=== PATIENT | male | born 1950 | race African-American/Black ===

== ENCOUNTER 2024-08-19 18:21 | Emergency (ER) | payer MEDICARE ==
[~2024-08-19] VITALS: Ht 185.4 cm; Wt 80.1 kg
[2024-08-19 18:32] VITALS: O2SAT 99
[2024-08-19 22:51] LABS: HEMATOCRIT. 31.8 % (42.0-52.0); HEMOGLOBIN. 9.6 g/dL (14.0-18.0); MEAN CORPUSCULAR HEMOGLOBIN 22.2 pg (28.0-32.0); MEAN CORPUSCULAR HGB CONC 30.3 g/dL (31.0-37.0); MEAN CORPUSCULAR VOLUME 73.1 fL (80.0-94.0); MEAN PLATELET VOLUME 7.4 fl (7.4-10.4); PLATELET 343 x1000/uL (130-400); RED BLOOD CELL COUNT 4.34 mill/uL (4.7-6.1); RED CELL DISTRIBUTION WIDTH 16.4 % (11.6-14.6); WHITE BLOOD COUNT 16.7 x1000/uL (4.5-11.0)
[2024-08-19 22:52] LABS: CHLORIDE 101 mEq/L (98-107); DIFFERENTIAL COMMENT 1; POTASSIUM 4.2 mEq/L (3.5-5.1); SODIUM 134 mEq/L (136-145)
[2024-08-19 22:53] LABS: CALCIUM 9.4 mg/dL (8.7-10.4); CARBON DIOXIDE 28 mEq/L (21-32)
[2024-08-19 22:58] LABS: CREATININE 0.9 mg/dL (0.6-1.3); GLUCOSE 101 mg/dL (70-105)
[2024-08-19 22:59] LABS: UREA NITROGEN BLOOD 31 mg/dL (9-23)
[2024-08-19 23:00] LABS: ALANINE AMINOTRANSFERASE < 7 IU/L (10-49); ALBUMIN 3.1 g/dL (3.2-4.8); ASPARTATE AMINOTRANSFERASE 8 IU/L (<34)
[2024-08-19 23:01] LABS: BILIRUBIN TOTAL 0.6 mg/dL (0.1-1.0); PROTEIN TOTAL 6.6 g/dL (6.0-8.3)
[2024-08-19 23:36] LABS: ANISOCYTOSIS 1+; HYPOCHROMASIA 1+; MICROCYTOSIS 2+; PLATELET ESTIMATE NORMAL
[2024-08-19] MEDS: HYDROCODONE/ACETAMINOPHEN 7.5/325MG TABLET PO ONE (23:58)
[2024-08-20 01:00] VITALS: BP 111/56; PULSE 79; RESP 16; TEMP 36.14
[2024-08-20] MEDS ORDERED: ACETAMINOPHEN 325MG TABLET PO PRN (02:45)
[2024-08-20] MEDS ORDERED: HYDROCODONE/ACETAMINOPHEN 5/325MG TABLET PO PRN (02:45)
[2024-08-20] MEDS ORDERED: DOCUSATE SODIUM 100MG CAPSULE PO PRN (02:45)
[2024-08-20] MEDS ORDERED: MAGNESIUM/ALUMINUM HYDROXIDE/SIMETHICONE 30ML UDC PO PRN (02:45)
[2024-08-20] MEDS ORDERED: POTASSIUM CHLORIDE 20MEQ TABLET SR PO PRN (02:45)
[2024-08-20] MEDS ORDERED: CLONIDINE 0.1MG TABLET PO PRN (02:45)
[2024-08-20] MEDS ORDERED: IPRATROPIUM/ALBUTEROL 0.5-3(2.5)MG/3ML NEB HHN PRN (02:45)
[2024-08-20] MEDS ORDERED: ONDANSETRON HCL 4MG/2ML INJ IV PRN (02:45)
[2024-08-20] MEDS ORDERED: NALOXONE HCL 0.4MG/ML VIAL IV PRN (03:00)
[2024-08-20 04:00] VITALS: BP 91/44; PULSE 70; RESP 16; TEMP 36.55848; O2SAT 97
[2024-08-20] MEDS: CEFTRIAXONE 1GM/50ML 50 ML IV SCH (05:07)
[2024-08-20 07:45] VITALS: BP_SYST 117
[2024-08-20] MEDS: ENOXAPARIN 40MG/0.4ML SYR SUBCUT SCH (09:37)
== END 2024-08-20 13:23 | disposition left against medical advice (07) ==
LOC: ER 18:21 → 5WST 23:16 → UNDOADMIN 23:16 → UNDODISIN 08-20 13:22
DX: M25.511 Pain in right shoulder (principal); M25.561 Pain in right knee; W05.0XXA Fall from non-moving wheelchair, initial encounter; Y93.89 Activity, other specified; Y92.89 Other specified places as the place of occurrence of the external cause; Y99.8 Other external cause status
CPT/HCPCS: 99284; 80053; 83036; 85025; 36415; 73030; 73560; 96365; 71045; 96372; J0696; J1650; 99285